=== PATIENT | female | born 1995 | race African-American/Black ===

== ENCOUNTER 2023-01-06 14:01 | Emergency (ER) | payer SELFPAY ==
[~2023-01-06] VITALS: Ht 172.7 cm; Wt 72.6 kg
[2023-01-06 14:05] VITALS: BP_SYST 117
--- NOTE | 2023-01-06 14:10 | NUR ---
Patient triaged and placed in waiting room. VSS and patient appears in no acute distress at this time. Accompanied by FAMILY, awaiting available bed, and MD notified of need for MSE.
--- NOTE | 2023-01-06 14:53 | NUR ---
BROUGHT BACK TO BED IN HALLWAY, REPORT GIVEN TO MICHELINE
--- NOTE | 2023-01-06 15:07 | NUR ---
ER DR. BUCIO EXAMINING PT
[2023-01-06 15:27] LABS: BASOPHILS # (AUTO) 0.1 K/uL (0.0-0.2); BASOPHILS % (AUTO) 0.6 % (0.0-2.0); EOSINOPHILS # (AUTO) 0.3 K/uL (0.0-0.4); EOSINOPHILS % (AUTO) 2.7 % (0.0-4.0); HEMATOCRIT 39.8 % (36-48); HEMOGLOBIN 13.5 g/dL (12.0-16.0); LYMPHOCYTES # (AUTO) 1.2 K/uL (1.0-5.5); LYMPHOCYTES % (AUTO) 11.7 % (20.5-51.5); MEAN CORPUSCULAR HEMOGLOBIN 30 pg (27-31); MEAN CORPUSCULAR HGB CONC 34 % (32-36); MEAN CORPUSCULAR VOLUME 89 fL (79.0-98.0); MONOCYTES # (AUTO) 0.6 K/uL (0.0-1.0); MONOCYTES % (AUTO) 5.3 % (1.7-9.3); NEUTROPHILS # (AUTO) 8.2 K/uL (1.8-7.7); NEUTROPHILS % (AUTO) 79.7 % (40.0-70.0); PLATELET COUNT (AUTO) 151 K/uL (130-430); RED BLOOD CELL COUNT(AUTO) 4.48 MIL/uL (4.2-6.2); RED CELL DISTRIBUTION WIDTH 12.7 % (9.0-15.0); WHITE BLOOD COUNT (AUTO) 10.3 K/uL (4.8-10.8)
[2023-01-06 15:37] LABS: CREATININE 0.79 mg/dL (0.55-1.30)
[2023-01-06 15:41] LABS: ALBUMIN 3.7 g/dL (3.4-4.8); TOTAL BILIRUBIN 0.2 mg/dL (0.0-1.0)
[2023-01-06 16:08] LABS: BILIRUBIN,URINE NEGATIVE (NEGATIVE); CLARITY/URINE CLEAR (CLEAR); COLOR,URINE YELLOW (YELLOW); GLUCOSE,URINE NEGATIVE (NEGATIVE); KETONES,URINE NEGATIVE (NEGATIVE); LEUKOCYTE ESTERASE ,URINE NEGATIVE (NEGATIVE); NITRITE, URINE NEGATIVE (NEGATIVE); PROTEIN URINE NEGATIVE (NEGATIVE); UROBILINOGEN,URINE 0.2 (0.2-1.0)
[2023-01-06 16:10] LABS: BLOOD, URINE TRACE (NEGATIVE)
[2023-01-06 16:17] LABS: WBC,URINE 0-3 /HPF (0-3)
[2023-01-06 16:18] LABS: BACTERIA,URINE RARE /HPF (None Seen)
[2023-01-06 16:35] VITALS: BP_SYST 117
--- NOTE | 2023-01-06 16:35 | NUR ---
Patient given written and verbal discharge instructions and verbalizes understanding. ER MD discussed with patient the results and treatment provided. Patient in stable condition. ID arm band removed. NO Rx given. Patient educated on pain management and to follow up with PMD. Pain Scale 0/10. Opportunity for questions provided and answered. Medication side effect fact sheet provided.
== END 2023-01-06 16:35 | disposition home or self-care (01) ==
LOC: SED 14:01
DX: R10.31 Right lower quadrant pain (principal); Z79.899 Other long term (current) drug therapy
CPT/HCPCS: 36415; 80053; 81000; 81025; 83690; 85025; 99283